=== PATIENT | male | born 1960 | race African-American/Black ===

== ENCOUNTER 2017-02-06 20:05 | Inpatient (IN) ==
[2017-02-06] MEDS ORDERED: ATIVAN IM ONE ×2 (20:40)
[2017-02-06 21:48] LABS: MANUAL DIFF NEEDED? NO
[2017-02-06 22:02] LABS: BASO% 0.3 % (0.0-0.8); EOS# 0.05 X1000 (0.0-0.7); EOS% 0.7 % (0.0-10.0); HEMATOCRIT 26.6 % (42.0-52.0); HEMOGLOBIN 8.7 g/dL (14.0-18.0); LYMPH# 1.47 X1000 (1.2-3.4); LYMPH% 20.2 % (20.5-51.1); MCH 33.7 PG (27-31); MCHC 32.7 g/dL (33-37); MCV 103.1 FL (81-99); MONO# 0.39 X1000 (0.11-0.59); MONO% 5.4 % (1.7-9.3); MPV 10.1 FL (7.4-10.4); NEUT% 73.4 % (42.2-75.2); PLT 141 X1000 (130-400); RBC 2.58 XMIL (4.7-6.1)
[2017-02-06 22:11] LABS: AGAP 21; ALBUMIN 3.7 g/dL (3.5-5.0); ALKALINE PHOSPHATASE 73 U/L (32-122); BUN 20 mg/dL (8-22); CALCIUM 9.7 mg/dL (8.8-10.2); CHLORIDE 95 mmol/L (98-107); COSMO 269; GOT 35 U/L (10-34); GPT 15 U/L (10-44); POTASSIUM 3.2 mmol/L (3.5-5.1); SODIUM 134 mmol/L (136-145); TCO2 18 mmol/L (25-35); TOTAL BILIRUBIN 1.14 mg/dL (0.20-1.00); TOTAL PROTEIN 7.2 g/dL (6.3-8.3)
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
[2017-02-06] MEDS ORDERED: PHENOBARBITAL ONE (22:59)
[2017-02-06] MEDS ORDERED: VALIUM ONE (23:00)
[2017-02-06] MEDS ORDERED: PHENOBARBITAL IM ONE (23:18)
[2017-02-06] MEDS ORDERED: VALIUM IM ONE (23:18)
[2017-02-07] MEDS ORDERED: THIAMINE IM ONE (00:32)
[2017-02-07] MEDS ORDERED: NS 1,000 ML IV ONE ×2 (00:32→01:15)
[2017-02-07] MEDS ORDERED: SODIUM CHLORIDE 0.9% INJ ONE (00:32)
[2017-02-07] MEDS ORDERED: M.V.I.-12 10 ML, FOLIC ACID 1 MG, MAGNESIUM SULFATE 1 GM, THIAMINE 100 MG in NS 1,000 ML IV ONE (00:32)
[2017-02-07] MEDS ORDERED: ZOFRAN IV PRN (00:32)
[2017-02-07] MEDS: VALIUM IV PRN ×6 (00:59→11:08)
[2017-02-07] MEDS: NEXIUM IV SCH (01:02)
[2017-02-07] MEDS: LOVENOX SUBQ SCH (01:02)
[2017-02-07] MEDS: NS + KCL 20 MEQ 1,000 ML IV SCH ×2 (01:08→07:52)
[2017-02-07 01:35] LABS: URINE MICRO REVIEW NEEDED? NO; URINE SOURCE CATH
[2017-02-07 01:54] LABS: BILIRUBIN URINE NEGATIVE (NEGATIVE); BLOOD URINE LARGE (NEGATIVE); COLOR YELLOW; GLUCOSE URINE NEGATIVE (NEGATIVE); LEUKOCYTES URINE NEGATIVE (NEGATIVE); NITRITE URINE NEGATIVE (NEGATIVE); PROTEIN URINE NEGATIVE (NEGATIVE); SP GRAVITY URINE 1.007; TURBIDITY URINE CLEAR (CLEAR); UROBILINOGEN URINE NORMAL (NORMAL)
[2017-02-07 01:55] LABS: UR EPITHELIAL CELLS <10 /HPF (<10); URINE BACTERIA NEGATIVE /HPF; URINE RBC <10 /HPF (<10); URINE WBC <10 /HPF (<10)
[2017-02-07] MEDS: PHENOBARBITAL IV PRN ×5 (02:10→11:08)
[2017-02-07 06:01] LABS: MANUAL DIFF NEEDED? NO
[2017-02-07 06:10] LABS: BASO% 0.2 % (0.0-0.8); EOS# 0.09 X1000 (0.0-0.7); EOS% 1.4 % (0.0-10.0); HEMATOCRIT 25.9 % (42.0-52.0); HEMOGLOBIN 8.4 g/dL (14.0-18.0); LYMPH# 1.33 X1000 (1.2-3.4); MCH 33.7 PG (27-31); MCHC 32.4 g/dL (33-37); MONO# 0.37 X1000 (0.11-0.59); MONO% 5.6 % (1.7-9.3); MPV 10.2 FL (7.4-10.4); NEUT% 72.8 % (42.2-75.2); PLT 123 X1000 (130-400); RBC 2.49 XMIL (4.7-6.1)
[2017-02-07 06:18] LABS: AGAP 18; ALBUMIN 3.1 g/dL (3.5-5.0); ALKALINE PHOSPHATASE 64 U/L (32-122); BUN 14 mg/dL (8-22); CALCIUM 8.4 mg/dL (8.8-10.2); CHLORIDE 103 mmol/L (98-107); COSMO 280; GOT 30 U/L (10-34); GPT 13 U/L (10-44); POTASSIUM 3.3 mmol/L (3.5-5.1); SODIUM 141 mmol/L (136-145); TCO2 20 mmol/L (25-35); TOTAL BILIRUBIN 0.89 mg/dL (0.20-1.00); TOTAL PROTEIN 6.2 g/dL (6.3-8.3)
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
[2017-02-07] MEDS ORDERED: POTASSIUM CHLORIDE 60 MEQ in NS 500 ML IV ONE (08:30)
[2017-02-07] MEDS: 1/2 NS 1,000 ML IV SCH ×2 (08:51→18:05)
[2017-02-07 10:12] LABS: UR AMPHETAMINES QUAL NONE DETECTED (NONE DETECT); UR BARBITUATES QUAL NONE DETECTED (NONE DETECT); UR BENZODIAZEPIN QUAL PRESUMPTIVE POSITIVE (NONE DETECT); UR CANNABINOIDS QUAL NONE DETECTED (NONE DETECT); UR COCAINE QUAL NONE DETECTED (NONE DETECT); UR METHADONE QUAL NONE DETECTED (NONE DETECT); UR OPIATES QUAL NONE DETECTED (NONE DETECT); UR OXYCODONE QUAL NONE DETECTED (NONE DETECT); UR PCP QUAL NONE DETECTED (NONE DETECT)
[2017-02-07 11:25] LABS: VITAMIN D 25 HYDROXY 11.6 NG/DL
--- NOTE | 2017-02-07 20:20 | PROGRESS NOTE ---
DATE: 02/07/2017 SUBJECTIVE: The patient is currently sedated and lethargic. Sometimes he does awaken and try to sit up. OBJECTIVE: Vital Signs: Temperature 97.6 degrees, blood pressure 148/92, heart rate 94, respirations 25, O2 saturations 95% on room air. General: This is an elderly male lying in bed in no acute distress. Head: Normocephalic, atraumatic. Heart: S1, S2. Normal. Tachycardic. Lungs: Equal air entry bilaterally, no crackles, no rales. Abdomen: Positive bowel sounds. Soft, nontender, nondistended. Extremities: No edema. No cyanosis. No calf tenderness. Neurologic: The patient is currently lethargic. He does move all 4 extremities. LABORATORY: White blood cell count 6.6, hemoglobin 8.4, hematocrit 25, platelets 123,000. Sodium 141, potassium 3.3, chloride 103, CO2 20, BUN 14, creatinine 0.7, glucose 62, calcium 8.4. ASSESSMENT AND PLAN: 1. Toxic encephalopathy versus alcohol withdrawal. We will continue to monitor the patient closely and continue with IV fluid hydration. We will also replenish the patient's electrolytes. The patient's mental status will be monitored closely. 2. Alcoholism. Aware. 3. History of peptic ulcer disease. Continue on IV Nexium. 4. Hypokalemia. We will replace the patient's potassium. 5. Anemia. The patient's hemoglobin and hematocrit are low, but stable. We will continue to monitor this closely. 6. Deep vein thrombosis prophylaxis. We will continue with Sequential Compression Devices. cc: Mikayla Regan MD
[2017-02-08] MEDS ORDERED: SODIUM CHLORIDE 0.9% 10 ML ONE (00:16)
[2017-02-08] MEDS: LOVENOX SUBQ SCH (00:18)
[2017-02-08] MEDS: NEXIUM IV SCH (00:18)
[2017-02-08] MEDS: 1/2 NS 1,000 ML IV SCH ×3 (04:14→14:17)
[2017-02-08 06:12] LABS: MANUAL DIFF NEEDED? NO
[2017-02-08 06:21] LABS: BASO% 0.1 % (0.0-0.8); EOS# 0.05 X1000 (0.0-0.7); EOS% 0.6 % (0.0-10.0); HEMATOCRIT 29.5 % (42.0-52.0); HEMOGLOBIN 9.6 g/dL (14.0-18.0); LYMPH# 1.05 X1000 (1.2-3.4); LYMPH% 12.7 % (20.5-51.1); MCH 33.9 PG (27-31); MCHC 32.5 g/dL (33-37); MCV 104.2 FL (81-99); MONO# 0.42 X1000 (0.11-0.59); MONO% 5.1 % (1.7-9.3); MPV 10.1 FL (7.4-10.4); NEUT% 81.5 % (42.2-75.2); PLT 129 X1000 (130-400); RBC 2.83 XMIL (4.7-6.1)
[2017-02-08 06:44] LABS: PROTIME 10.5 Seconds (9.2-11.7)
[2017-02-08 06:46] LABS: AGAP 21; ALBUMIN 3.3 g/dL (3.5-5.0); ALKALINE PHOSPHATASE 69 U/L (32-122); BUN 4 mg/dL (8-22); CALCIUM 8.9 mg/dL (8.8-10.2); CHLORIDE 99 mmol/L (98-107); COSMO 267; GOT 25 U/L (10-34); GPT 13 U/L (10-44); POTASSIUM 3.8 mmol/L (3.5-5.1); SODIUM 136 mmol/L (136-145); TCO2 16 mmol/L (25-35); TOTAL PROTEIN 6.7 g/dL (6.3-8.3)
[2017-02-08] MEDS: VALIUM IV PRN (07:58)
[2017-02-08] MEDS: TYLENOL PO PRN (12:35)
--- NOTE | 2017-02-08 12:51 | PROGRESS NOTE ---
DATE: 02/08/2017 SUBJECTIVE: The patient is resting comfortably in bed. He is more awake today. He does complain of rib pain. OBJECTIVE: Vital Signs: Temperature 98.2 degrees, blood pressure 118/75, heart rate 85, respirations 19, O2 saturation is 98% on room air. General: This is an elderly male, lying in bed, in no acute distress. Head: Normocephalic, atraumatic. Heart: S1, S2. Normal. Regular rate and rhythm. Lungs: Clear to auscultation bilaterally. No crackles. No rales. Abdomen: Positive bowel sounds. Soft, nontender, nondistended. Extremities: No edema. No cyanosis. No calf tenderness. Neurologic: The patient is awake and able to answer questions. LABS: White blood cell count 8.2, hemoglobin 9.6, hematocrit 29, platelets 129,000. Sodium 136, potassium 3.8, chloride 99, CO2 16, BUN 4, creatinine 0.7. ASSESSMENT AND PLAN: 1. Toxic encephalopathy. Improving slowly. 2. Alcoholism. Aware. 3. History of peptic ulcer disease. Continue on Nexium. 4. Anemia. The patient's hemoglobin and hematocrit are stable. 5. Deep vein thrombosis prophylaxis. Continue with SCDs. cc: Mikayla Regan MD
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
[2017-02-08] MEDS: NORCO-7.5 PO PRN (15:20)
[2017-02-08] MEDS: ZOSYN 3.375 GM/NS 3.375 GM/50 ML IVPB IV SCH ×2 (15:58→20:21)
[2017-02-09] MEDS: LOVENOX SUBQ SCH (00:26)
[2017-02-09] MEDS: 1/2 NS 1,000 ML IV SCH (00:26)
[2017-02-09] MEDS: NEXIUM IV SCH (00:26)
[2017-02-09] MEDS: TYLENOL PO PRN (00:34)
[2017-02-09] MEDS: ZOSYN 3.375 GM/NS 3.375 GM/50 ML IVPB IV SCH ×4 (02:30→20:30)
[2017-02-09 04:38] LABS: MANUAL DIFF NEEDED? NO
[2017-02-09 05:17] LABS: BASO% 0.2 % (0.0-0.8); EOS# 0.08 X1000 (0.0-0.7); EOS% 1.4 % (0.0-10.0); HEMOGLOBIN 10.1 g/dL (14.0-18.0); LYMPH# 1.31 X1000 (1.2-3.4); LYMPH% 22.7 % (20.5-51.1); MCH 33.9 PG (27-31); MCHC 33.7 g/dL (33-37); MCV 100.7 FL (81-99); MONO# 0.47 X1000 (0.11-0.59); MONO% 8.1 % (1.7-9.3); MPV 9.4 FL (7.4-10.4); NEUT% 67.6 % (42.2-75.2); PLT 188 X1000 (130-400); RBC 2.98 XMIL (4.7-6.1)
[2017-02-09 06:52] LABS: AGAP 14; BUN 3 mg/dL (8-22); CALCIUM 8.5 mg/dL (8.8-10.2); CHLORIDE 99 mmol/L (98-107); COSMO 267; POTASSIUM 3.1 mmol/L (3.5-5.1); SODIUM 135 mmol/L (136-145); TCO2 22 mmol/L (25-35)
[2017-02-09] MEDS ORDERED: KLOR-CON PO ONE (07:09)
[2017-02-09] MEDS ORDERED: VITAMIN D PO SCH (07:15)
[2017-02-09 07:26] LABS: MAGNESIUM 1.6 mg/dL (1.5-2.7)
[2017-02-09] MEDS: MIRALAX PO SCH ×2 (08:21→20:00)
[2017-02-09] MEDS ORDERED: MAGNESIUM SULFATE 2 GM/S.W.I. 2 GM/50 ML IVPB IV ONE (16:52)
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
[2017-02-10] MEDS: LOVENOX SUBQ SCH ×2 (00:45→23:55)
[2017-02-10] MEDS: ZOSYN 3.375 GM/NS 3.375 GM/50 ML IVPB IV SCH ×4 (03:09→20:28)
[2017-02-10 06:09] LABS: AGAP 13; BUN 7 mg/dL (8-22); CALCIUM 8.7 mg/dL (8.8-10.2); CHLORIDE 101 mmol/L (98-107); COSMO 280; MAGNESIUM 1.8 mg/dL (1.5-2.7); POTASSIUM 3.6 mmol/L (3.5-5.1); SODIUM 140 mmol/L (136-145); TCO2 26 mmol/L (25-35)
[2017-02-10] MEDS: PRILOSEC PO SCH (06:18)
[2017-02-10 06:20] LABS: HEMATOCRIT 27.7 % (42.0-52.0); HEMOGLOBIN 9.1 g/dL (14.0-18.0); MCH 33.7 PG (27-31); MCHC 32.9 g/dL (33-37); MCV 102.6 FL (81-99); MPV 9.9 FL (7.4-10.4); RBC 2.7 XMIL (4.7-6.1)
[2017-02-10] MEDS: MIRALAX PO SCH ×2 (08:38→20:28)
--- NOTE | 2017-02-10 17:08 | PROGRESS NOTE ---
DATE: 02/10/2017 SUBJECTIVE: The patient has been making statements of feeling suicidal and homicidal to the nursing staff this morning. When further questioned about it he denies that he ever made the statements. Medically speaking the patient is stable. OBJECTIVE: Vital Signs: Temperature 98.3 degrees, blood pressure 108/74, heart rate 90, respirations 20, O2 saturations 99% on room air. General: This is an elderly male, lying in bed, in no acute distress. Head: Normocephalic, atraumatic. Heart: S1, S2. Normal. Regular rate and rhythm. Lungs: Clear to auscultation bilaterally. No wheezing. No rales. No rhonchi. Abdomen: Positive bowel sounds. Soft, nontender, nondistended. Extremities: No edema. No cyanosis. No calf tenderness. Neurologic: The patient is alert and oriented x3. No focal neurologic deficits noted. LABS: White blood cell count 4.4, hemoglobin 9.1, hematocrit 27, platelets 215,000. Sodium 140, potassium 3.6, chloride 101, CO2 26, BUN 7, creatinine 0.7, glucose 140, magnesium 1.8, phosphorus 2.8. ASSESSMENT AND PLAN: 1. Toxic encephalopathy with alcohol withdrawal. Resolved. 2. Suicidal ideation. Dance Entertainer and case management are working on an inpatient psych placement for the patient. The patient was denied acceptance to [facility] on Sunday. 3. Alcoholism. Aware. The patient has been counseled about alcohol cessation. 4. Bilateral rib fractures. Aware. 5. Vitamin D deficiency. Continue on vitamin D replacement. 6. Deep vein thrombosis prophylaxis. Continue on Lovenox. cc: Mikayla Regan MD
[2017-02-10] MEDS: NORCO-7.5 PO PRN (20:49)
[2017-02-11] MEDS: ZOSYN 3.375 GM/NS 3.375 GM/50 ML IVPB IV SCH ×4 (03:44→20:18)
[2017-02-11] MEDS: NORCO-7.5 PO PRN ×4 (04:23→21:57)
[2017-02-11 06:03] LABS: AGAP 7; BUN 9 mg/dL (8-22); CALCIUM 9.2 mg/dL (8.8-10.2); CHLORIDE 104 mmol/L (98-107); COSMO 279; POTASSIUM 3.7 mmol/L (3.5-5.1); SODIUM 140 mmol/L (136-145); TCO2 29 mmol/L (25-35)
[2017-02-11] MEDS: PRILOSEC PO SCH (06:08)
[2017-02-11] MEDS: MIRALAX PO SCH ×2 (08:43→20:18)
--- NOTE | 2017-02-11 19:08 | PROGRESS NOTE ---
DATE: 02/11/2017 SUBJECTIVE: The patient is resting comfortably in bed. He has no complaints. OBJECTIVE: Vital Signs: Temperature 98 degrees, blood pressure 113/71, heart rate 81, respirations 18, O2 saturation is 96% on room air. General: This is an elderly male, lying in bed, in no acute distress. Head: Normocephalic, atraumatic. Heart: S1, S2. Normal. Regular rate and rhythm. Lungs: Equal air entry bilaterally. No crackles. No rales. Abdomen: Positive bowel sounds. Soft, nontender, nondistended. Extremities: No edema. No cyanosis. No calf tenderness. Neurologic: The patient is alert and oriented x3. LABS: Reviewed. ASSESSMENT AND PLAN: 1. Toxic encephalopathy. Resolved. 2. Alcoholism. The patient has been counseled about alcohol cessation. 3. Suicidal ideation. The patient states that he does want psychiatric help for his suicidal thoughts and depression. transaction advisory services manager is working on inpatient psychiatric placement for the patient. 4. Bilateral rib fractures. Aware. 5. Vitamin D deficiency. Continue on vitamin D replacement. 6. Deep vein thrombosis prophylaxis. Continue on Lovenox. cc: Mikayla eRgan MD
[2017-02-11] MEDS: TYLENOL PO PRN (19:46)
[2017-02-11] MEDS: LOVENOX SUBQ SCH (23:58)
[2017-02-12] MEDS: ZOSYN 3.375 GM/NS 3.375 GM/50 ML IVPB IV SCH ×2 (03:54→08:37)
[2017-02-12] MEDS: NORCO-7.5 PO PRN ×2 (03:55→20:03)
[2017-02-12 06:20] LABS: AGAP 10; BUN 9 mg/dL (8-22); CALCIUM 8.8 mg/dL (8.8-10.2); CHLORIDE 101 mmol/L (98-107); COSMO 274; POTASSIUM 4.4 mmol/L (3.5-5.1); SODIUM 137 mmol/L (136-145); TCO2 26 mmol/L (25-35)
[2017-02-12] MEDS: PRILOSEC PO SCH (06:36)
[2017-02-12] MEDS: MIRALAX PO SCH ×2 (08:37→20:03)
[2017-02-12 09:25] LABS: HEMOGLOBIN A1C 4.6 % (4.8-6.0)
--- NOTE | 2017-02-12 09:43 | Diag Imaging Result Doc PS360 ---
EXAM: HIP W/PELVIS BILAT 2 VIEWS HISTORY: recent fall hip pain TECHNIQUE: AP pelvis and bilateral frog-leg lateral hips, three views COMMENT: The right hip joint is narrowed to a greater degree than the left. There is no evidence of fracture or dislocation. There is some solid stool throughout the visualized left colon. There are phleboliths in the pelvis. IMPRESSION: Mild osteoarthritic changes in the right hip. No evidence of acute bony disease. Electronically signed by Cyrus Young 02/12/2017 9:40 AM
[2017-02-12] MEDS: NEURONTIN PO SCH ×2 (10:31→20:03)
--- NOTE | 2017-02-12 18:58 | PROGRESS NOTE ---
DATE: 02/12/2017 SUBJECTIVE: The patient admits that he is very depressed and wants help for his depression. He does OBJECTIVE: Vital Signs: Temperature 97 degrees, blood pressure 108/76, heart rate 107, respirations 18, O2 saturations 100% on room air. General: This is an elderly male lying in bed, in no acute distress. Head: Normocephalic, atraumatic. Heart: S1, S2. Normal. Regular rate and rhythm. Lungs: Clear to auscultation bilaterally. Abdomen: Positive bowel sounds. Soft, nontender, nondistended. Extremities: No edema. No cyanosis. No calf tenderness. Neurologic: The patient is alert and oriented x3. LABORATORY: Sodium 137, potassium 4.4, chloride 101, CO2 26, BUN 9, creatinine 0.8, glucose 118. ASSESSMENT AND PLAN: 1. Toxic encephalopathy. Resolved. 2. Alcoholism. Aware. 3. Depression with suicidal ideation. environmental field services technician is working on inpatient psychiatric placement for the patient. 4. Vitamin D deficiency. Continue with vitamin D replacement. 5. Gastrointestinal prophylaxis. Continue on Prilosec. 6. Deep vein thrombosis prophylaxis. Continue on Lovenox. 7. Continue with physical therapy. cc: Mikayla Regan MD
[2017-02-12] MEDS: LOVENOX SUBQ SCH (23:38)
[2017-02-13] MEDS: NORCO-7.5 PO PRN (06:02)
[2017-02-13] MEDS: PRILOSEC PO SCH (06:04)
[2017-02-13] MEDS: MIRALAX PO SCH ×2 (08:24→20:35)
[2017-02-13] MEDS: NEURONTIN PO SCH ×2 (08:24→20:35)
--- NOTE | 2017-02-13 19:16 | PROGRESS NOTE ---
DATE: 02/13/2017 SUBJECTIVE: The patient is resting comfortably in bed. No acute events noted overnight. OBJECTIVE: Vital Signs: Temperature 99 degrees, blood pressure 107/74, heart rate 100, respirations 20, O2 saturations 96% on room air. General: This is a elderly male, lying in bed, in no acute distress. Head: Normocephalic, atraumatic. Heart: S1, S2. Normal. Regular rate and rhythm. Lungs: Clear to auscultation bilaterally. No wheezing. No rales. No rhonchi. Abdomen: Positive bowel sounds. Soft, nontender, nondistended. Extremities: No edema. No cyanosis. No calf tenderness. Neurologic: The patient is alert and oriented x3. LABS: Reviewed. ASSESSMENT AND PLAN: 1. Suicidal ideation with depression. Case management and Director Group Sales are working on inpatient rehab placement for the patient. 2. Toxic encephalopathy. Resolved. 3. Alcoholism. Aware. 4. Vitamin D deficiency. Continue with vitamin D replacement. 5. GI prophylaxis. Continue on Prilosec. 6. Deep vein thrombosis prophylaxis. Continue on Lovenox. cc: Mikayla Regan MD
[2017-02-13] MEDS: LOVENOX SUBQ SCH (23:34)
[2017-02-14] MEDS: NORCO-7.5 PO PRN (00:16)
[2017-02-14 05:10] LABS: HEMATOCRIT 31.4 % (42.0-52.0); HEMOGLOBIN 9.9 g/dL (14.0-18.0); MCH 33.4 PG (27-31); MCHC 31.5 g/dL (33-37); MCV 106.1 FL (81-99); MPV 9.4 FL (7.4-10.4); RBC 2.96 XMIL (4.7-6.1)
[2017-02-14 05:29] LABS: AGAP 12; BUN 16 mg/dL (8-22); CALCIUM 9.1 mg/dL (8.8-10.2); CHLORIDE 100 mmol/L (98-107); COSMO 279; POTASSIUM 4.3 mmol/L (3.5-5.1); SODIUM 138 mmol/L (136-145); TCO2 26 mmol/L (25-35)
[2017-02-14] MEDS: PRILOSEC PO SCH (06:43)
[2017-02-14] MEDS: NEURONTIN PO SCH (08:14)
[2017-02-14] MEDS: MIRALAX PO SCH (08:14)
[2017-02-14 08:25] VITALS: BP 116/78
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
== END 2017-02-14 09:19 | disposition home or self-care (01) ==
LOC: ED 20:05 → ICU 23:46 → SUATTDRO 23:46
PROVIDERS: ATTEND Internal Medicine

== ENCOUNTER 2017-03-01 11:42 | Inpatient (IN) ==
[2017-03-01] MEDS ORDERED: M.V.I.-12 10 ML, FOLIC ACID 1 MG, MAGNESIUM SULFATE 1 GM, THIAMINE 100 MG in NS 1,000 ML IV ONE ×2 (12:14→12:27)
[2017-03-01 12:52] LABS: BASO% 0.4 % (0.0-0.8); EOS# 0.28 X1000 (0.0-0.7); EOS% 4.1 % (0.0-10.0); HEMATOCRIT 39.5 % (42.0-52.0); HEMOGLOBIN 12.5 g/dL (14.0-18.0); LYMPH% 33.9 % (20.5-51.1); MANUAL DIFF NEEDED? NO; MCH 33.8 PG (27-31); MCHC 31.6 g/dL (33-37); MCV 106.8 FL (81-99); MONO# 0.37 X1000 (0.11-0.59); MONO% 5.5 % (1.7-9.3); MPV 9.4 FL (7.4-10.4); NEUT% 56.1 % (42.2-75.2); PLT 288 X1000 (130-400)
[2017-03-01 12:57] LABS: INR 0.98; PROTIME 10.3 Seconds (9.2-11.7)
[2017-03-01 12:58] LABS: UR AMPHETAMINES QUAL NONE DETECTED (NONE DETECT); UR BARBITUATES QUAL NONE DETECTED (NONE DETECT); UR BENZODIAZEPIN QUAL NONE DETECTED (NONE DETECT); UR CANNABINOIDS QUAL NONE DETECTED (NONE DETECT); UR COCAINE QUAL NONE DETECTED (NONE DETECT); UR METHADONE QUAL NONE DETECTED (NONE DETECT); UR OPIATES QUAL NONE DETECTED (NONE DETECT); UR OXYCODONE QUAL NONE DETECTED (NONE DETECT); UR PCP QUAL NONE DETECTED (NONE DETECT)
[2017-03-01 13:04] LABS: AGAP 15; ALBUMIN 4.1 g/dL (3.5-5.0); ALKALINE PHOSPHATASE 71 U/L (32-122); BUN 12 mg/dL (8-22); CALCIUM 9.2 mg/dL (8.8-10.2); CHLORIDE 109 mmol/L (98-107); COSMO 297; GOT 17 U/L (10-34); GPT 8 U/L (10-44); POTASSIUM 3.9 mmol/L (3.5-5.1); SODIUM 150 mmol/L (136-145); TCO2 26 mmol/L (25-35); TOTAL BILIRUBIN 0.19 mg/dL (0.20-1.00); TOTAL PROTEIN 7.7 g/dL (6.3-8.3)
[2017-03-01] MEDS ORDERED: NS 1,000 ML IV ONE (13:40)
[2017-03-01] MEDS ORDERED: ATIVAN IV ONE (15:12)
--- NOTE | 2017-03-01 16:33 | Diag Imaging Result Doc PS360 ---
EXAM: HEAD W/O CONTRAST TECHNIQUE: INDICATION: INTOXICATED COMPARISON: 01/02/2017 FINDINGS: There is no definite acute infarct given the limited sensitivity of CT versus MRI. There is no discrete intracranial mass, mass effect, or intracranial hemorrhage. The surrounding soft tissues and bony structures are essentially unremarkable. IMPRESSION: No evidence of acute intracranial pathology. Electronically signed by Yinka Holland 03/01/2017 4:30 PM
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
[2017-03-01] MEDS ORDERED: ATIVAN IV PRN (16:59)
[2017-03-01] MEDS ORDERED: PHENOBARBITAL IV PRN (17:00)
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
[2017-03-01] MEDS ORDERED: BENADRYL ONE (17:45)
[2017-03-01] MEDS ORDERED: ATIVAN ONE (17:45)
[2017-03-01] MEDS ORDERED: HALDOL ONE (17:45)
[2017-03-01] MEDS ORDERED: HALDOL IM PRN (17:53)
[2017-03-01] MEDS ORDERED: ATIVAN IM ONE (17:53)
[2017-03-01] MEDS ORDERED: BENADRYL IM ONE (17:53)
[2017-03-01] MEDS ORDERED: ZOFRAN IV PRN (18:33)
[2017-03-01] MEDS ORDERED: NS 1,000 ML IV PRN (18:33)
[2017-03-01 20:52] LABS: URINE CULTURE PL NEEDED? NO
[2017-03-01 20:58] LABS: BILIRUBIN URINE NEGATIVE (NEGATIVE); BLOOD URINE TRACE (NEGATIVE); CLARITY CLEAR (CLEAR); COLOR YELLOW; GLUCOSE URINE NEGATIVE (NEGATIVE); LEUKOCYTES URINE NEGATIVE (NEGATIVE); NITRITE URINE NEGATIVE (NEGATIVE); PROTEIN URINE NEGATIVE (NEGATIVE); UROBILINOGEN URINE NORMAL
[2017-03-01 21:21] LABS: URINE CAST NONE SEEN /LPF; URINE CRYSTAL NONE SEEN /HPF; URINE EPITHELIAL CELLS <10 /HPF (<10); URINE RBC <10 /HPF (<10); URINE SOURCE CATH
[2017-03-02 05:52] LABS: MANUAL DIFF NEEDED? NO
[2017-03-02 06:06] LABS: BASO% 0.3 % (0.0-0.8); EOS# 0.21 X1000 (0.0-0.7); EOS% 3.5 % (0.0-10.0); HEMATOCRIT 30.6 % (42.0-52.0); HEMOGLOBIN 9.5 g/dL (14.0-18.0); IMM GRAN# 0.01 X1000 (0.0-0.04); IMM GRAN% 0.2 % (0.0-0.5); LYMPH# 1.21 X1000 (1.2-3.4); LYMPH% 20.1 % (20.5-51.1); MCH 32.5 PG (27-31); MCV 104.8 FL (81-99); MONO# 0.32 X1000 (0.11-0.59); MONO% 5.3 % (1.7-9.3); MPV 9.2 FL (7.4-10.4); NEUT% 70.6 % (42.2-75.2); PLT 250 X1000 (130-400); RBC 2.92 XMIL (4.7-6.1)
[2017-03-02 06:26] LABS: AGAP 10; ALBUMIN 3.3 g/dL (3.5-5.0); ALKALINE PHOSPHATASE 59 U/L (32-122); BUN 12 mg/dL (8-22); CALCIUM 8.2 mg/dL (8.8-10.2); CHLORIDE 107 mmol/L (98-107); COSMO 281; GOT 21 U/L (10-34); GPT 6 U/L (10-44); MAGNESIUM 1.9 mg/dL (1.5-2.7); POTASSIUM 3.9 mmol/L (3.5-5.1); SODIUM 141 mmol/L (136-145); TCO2 24 mmol/L (25-35); TOTAL BILIRUBIN < 0.15 mg/dL (0.20-1.00); TOTAL PROTEIN 5.7 g/dL (6.3-8.3)
[2017-03-02 06:31] LABS: FREE T4 0.79 ng/dL (0.93-1.70)
[2017-03-02] MEDS ORDERED: PRILOSEC PO SCH (07:00)
[2017-03-02] MEDS ORDERED: M.V.I.-12 10 ML, FOLIC ACID 1 MG, MAGNESIUM SULFATE 1 GM, THIAMINE 100 MG in NS 1,000 ML IV SCH (09:00)
[2017-03-02 11:10] VITALS: BP 135/82
--- NOTE | 2017-03-02 22:04 | DISCHARGE SUMMARY ---
ADMISSION DATE: 03/01/2017 DISCHARGE DATE: 03/02/2017 DISCHARGE DIAGNOSES: 1. Acute alcohol intoxication resolved. 2. Low back pain. CONSULTATIONS: None. PROCEDURES: None. BRIEF HOSPITAL COURSE: The patient is a 56-year-old male who was admitted as noted on the HPI with a known history of chronic peptic ulcer disease and chronic alcohol abuse. He was found intoxicated, poorly responsive. He was brought to the hospital and was admitted with an alcohol level of 400. On discharge his alcohol level was down to 32. He denied any complaints. He was awake, alert, oriented. He was able to eat without any difficulty. He stated that he was leaving the hospital regardless. DISPOSITION: The patient will be discharged home. No prescriptions were written. I did discuss with patient the perils of alcohol and alcohol abuse. Patient states that he enjoys drinking and was going to go home and continue to drink. DISCHARGE TIME: 35 minutes. cc: Casa Bishop MD
== END 2017-03-02 08:20 | disposition home or self-care (01) ==
LOC: ED 11:42 → P.ICU 17:28
PROVIDERS: ATTEND Family Medicine

== ENCOUNTER 2018-08-18 01:32 | Inpatient (IN) ==
[2018-08-18] MEDS ORDERED: M.V.I.-12 10 ML, FOLIC ACID 1 MG, MAGNESIUM SULFATE 1 GM, THIAMINE 100 MG in NS 1,000 ML IV ONE (01:52)
[2018-08-18] MEDS ORDERED: ATIVAN IV ONE ×2 (01:56→03:40)
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
[2018-08-18 02:46] LABS: BASO# 0.01 X1000 (0.0-0.2); BASO% 0.1 % (0.0-0.8); HEMOGLOBIN 11.3 g/dL (14.0-18.0); LYMPH% 12.8 % (20.5-51.1); MCH 32.9 PG (27-31); MCHC 33.2 g/dL (33-37); MCV 99.1 FL (81-99); MONO# 0.75 X1000 (0.11-0.59); MONO% 10.7 % (1.7-9.3); MPV 10.2 FL (7.4-10.4); NEUT# 5.36 X1000 (1.4-6.5); NEUT% 76.4 % (42.2-75.2); PLT 162 X1000 (130-400); RBC 3.43 XMIL (4.7-6.1); RDW 14.9 % (11.5-14.5); WBC 7.02 X1000 (4.8-10.8)
[2018-08-18 03:04] LABS: AGAP 15; ALB/GLOB RATIO 1.3; ALBUMIN 4.2 g/dL (3.5-5.0); ALKALINE PHOSPHATASE 56 U/L (32-122); BUN 12 mg/dL (8-22); CALCIUM 9.5 mg/dL (8.8-10.2); CHLORIDE 100 mmol/L (98-107); COSMO 278; CREATININE 0.8 mg/dL (0.7-1.2); ESTIMATED GFR > 60; GLUCOSE 110 mg/dL (70-104); GOT 85 U/L (10-34); GPT 24 U/L (10-44); POTASSIUM 3.3 mmol/L (3.5-5.1); SODIUM 139 mmol/L (136-145); TCO2 24 mmol/L (25-35); TOTAL BILIRUBIN 0.71 mg/dL (0.20-1.00); TOTAL PROTEIN 7.4 g/dL (6.3-8.3)
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
[2018-08-18] MEDS ORDERED: ATIVAN IV PRN ×2 (07:21→09:04)
[2018-08-18] MEDS ORDERED: ZOFRAN IV PRN (07:21)
[2018-08-18] MEDS: NS 1,000 ML IV SCH ×3 (07:36→23:27)
[2018-08-18] MEDS ORDERED: POTASSIUM CHLORIDE 20 MEQ/SWI 20 MEQ/100 ML IVPB IV ONE (07:55)
[2018-08-18] MEDS: LOVENOX SUBQ SCH (08:25)
[2018-08-18] MEDS ORDERED: NS 1,000 ML IV ONE (09:05)
[2018-08-18] MEDS: ATIVAN 20 MG in NS 190 ML IV SCH ×2 (09:20→19:09)
[2018-08-18 09:26] LABS: URINE SOURCE CATH
[2018-08-18 09:48] LABS: BILIRUBIN URINE NEGATIVE (NEGATIVE); BLOOD URINE SMALL (NEGATIVE); COLOR YELLOW; GLUCOSE URINE NEGATIVE (NEGATIVE); KETONE URINE NEGATIVE (NEGATIVE); LEUKOCYTES URINE NEGATIVE (NEGATIVE); NITRITE URINE NEGATIVE (NEGATIVE); PH URINE 6.5; PROTEIN URINE NEGATIVE (NEGATIVE); TURBIDITY URINE CLEAR (CLEAR); UROBILINOGEN URINE NORMAL (NORMAL)
[2018-08-18 09:50] LABS: UR EPITHELIAL CELLS <10 /HPF (<10); URINE BACTERIA NEGATIVE /HPF; URINE RBC <10 /HPF (<10); URINE WBC <10 /HPF (<10)
[2018-08-18 10:28] LABS: UR AMPHETAMINES QUAL NONE DETECTED (NONE DETECT); UR BARBITUATES QUAL NONE DETECTED (NONE DETECT); UR BENZODIAZEPIN QUAL NONE DETECTED (NONE DETECT); UR CANNABINOIDS QUAL NONE DETECTED (NONE DETECT); UR COCAINE QUAL NONE DETECTED (NONE DETECT); UR METHADONE QUAL NONE DETECTED (NONE DETECT); UR OPIATES QUAL NONE DETECTED (NONE DETECT); UR OXYCODONE QUAL NONE DETECTED (NONE DETECT); UR PCP QUAL NONE DETECTED (NONE DETECT)
[2018-08-18] MEDS: STERILE WATER INJ. INJ PRN (15:12)
[2018-08-18] MEDS: GEODON IM PRN ×2 (15:12→21:30)
[2018-08-18] MEDS ORDERED: PHENOBARBITAL IV ONE (23:40)
[2018-08-19] MEDS: NS 1,000 ML IV SCH ×4 (03:35→21:59)
[2018-08-19 05:15] LABS: BASO# 0.02 X1000 (0.0-0.2); BASO% 0.4 % (0.0-0.8); EOS# 0.02 X1000 (0.0-0.7); EOS% 0.4 % (0.0-10.0); HEMATOCRIT 39.3 % (42.0-52.0); HEMOGLOBIN 13.1 g/dL (14.0-18.0); LYMPH# 1.21 X1000 (1.2-3.4); LYMPH% 24.5 % (20.5-51.1); MCH 33.4 PG (27-31); MCHC 33.3 g/dL (33-37); MCV 100.3 FL (81-99); MONO# 0.46 X1000 (0.11-0.59); MONO% 9.3 % (1.7-9.3); MPV 11.2 FL (7.4-10.4); NEUT# 3.22 X1000 (1.4-6.5); NEUT% 65.4 % (42.2-75.2); PLT 121 X1000 (130-400); RBC 3.92 XMIL (4.7-6.1); RDW 14.9 % (11.5-14.5); WBC 4.93 X1000 (4.8-10.8)
[2018-08-19 05:39] LABS: AGAP 16; BUN 5 mg/dL (8-22); CALCIUM 9.2 mg/dL (8.8-10.2); CHLORIDE 104 mmol/L (98-107); COSMO 281; CREATININE 0.7 mg/dL (0.7-1.2); ESTIMATED GFR > 60; GLUCOSE 69 mg/dL (70-104); POTASSIUM 3.6 mmol/L (3.5-5.1); SODIUM 143 mmol/L (136-145); TCO2 23 mmol/L (25-35)
[2018-08-19] MEDS ORDERED: NS 1,000 ML IV ONE (08:16)
[2018-08-19] MEDS: LOVENOX SUBQ SCH (08:28)
[2018-08-19] MEDS: STERILE WATER INJ. INJ PRN (08:28)
[2018-08-19] MEDS: GEODON IM PRN (08:28)
[2018-08-19] MEDS: THIAMINE 100 MG in NS 50 ML IV SCH (09:29)
--- NOTE | 2018-08-19 10:12 | PROGRESS NOTE ---
DATE: 08/19/2018 SUBJECTIVE: The patient continues to be very agitated. Overnight, he was started on an Ativan drip and he required Geodon and phenobarbital. OBJECTIVE: Vital Signs: Temperature 97.5 degrees, heart rate 60, respiratory rate 22, blood pressure 151/109, O2 saturation 100% on room air. General Examination: This is a chronically ill- looking, 57-year-old, male, lying in bed, in no acute distress. Cardiovascular Examination: S1 and S2 heard. Tachycardic. No murmurs, gallops, or rubs. Regular rate and rhythm. Respiratory Examination: Clear bilaterally to auscultation. No work of breathing or using accessory muscles. Abdomen: Soft. Nontender to palpation. Bowel sounds present. No organomegaly. Extremities: No clubbing, cyanosis, or edema. Peripheral pulses present in both legs. Neurological Examination: The patient is sleepier, obtunded. He received recently Geodon. Laboratory Data: White cell count 4.93, hemoglobin 13.1, hematocrit 39.3, platelets 121,000. BMP is unremarkable. ASSESSMENT AND PLAN: 1. Toxic encephalopathy secondary to alcohol withdrawal. 2. The patient continues to be very agitated. The patient has a history of alcohol abuse in the past and also polysubstance abuse as well. He has been seen in [facility] for that. This time, the patient was brought to the emergency room by police because the patient was having apparently visual hallucinations. He has been started on an Ativan drip and was still combative and agitated. He was given Geodon but he was still agitated so he was started on phenobarbital pushes and he is more calmed down now. I have not seen any neuroimaging done for this patient and even though he was admitted for alcohol withdrawal, I would like to see a CAT scan of the head with and without contrast to rule out any structural abnormality in the brain. We will provide intravenous fluids. We will continue with intravenous thiamine. We will continue to monitor this patient closely in the intensive care unit. cc: Stevenson Padgett MD
[2018-08-19] MEDS: PHENOBARBITAL IV PRN ×2 (10:28→14:24)
[2018-08-19] MEDS: ATIVAN 20 MG in NS 190 ML IV SCH (12:09)
[2018-08-19] MEDS: ATIVAN IV PRN (12:37)
[2018-08-20] MEDS: ATIVAN IV PRN ×5 (01:29→23:09)
[2018-08-20] MEDS: NS 1,000 ML IV SCH ×2 (04:44→10:33)
[2018-08-20] MEDS: THIAMINE 100 MG in NS 50 ML IV SCH (07:40)
[2018-08-20] MEDS: LOVENOX SUBQ SCH (08:00)
[2018-08-20] MEDS: ATIVAN 20 MG in NS 190 ML IV SCH (08:38)
[2018-08-20 09:03] LABS: BASO# 0.02 X1000 (0.0-0.2); BASO% 0.3 % (0.0-0.8); EOS# 0.05 X1000 (0.0-0.7); EOS% 0.7 % (0.0-10.0); HEMATOCRIT 36.7 % (42.0-52.0); LYMPH# 1.46 X1000 (1.2-3.4); LYMPH% 20.7 % (20.5-51.1); MCH 32.5 PG (27-31); MCHC 32.7 g/dL (33-37); MCV 99.5 FL (81-99); MONO% 12.7 % (1.7-9.3); MPV 9.7 FL (7.4-10.4); NEUT# 4.63 X1000 (1.4-6.5); NEUT% 65.6 % (42.2-75.2); PLT 170 X1000 (130-400); RBC 3.69 XMIL (4.7-6.1); WBC 7.06 X1000 (4.8-10.8)
[2018-08-20 09:11] LABS: AGAP 18; ALB/GLOB RATIO 0.9; ALBUMIN 3.2 g/dL (3.5-5.0); ALKALINE PHOSPHATASE 53 U/L (32-122); BUN 5 mg/dL (8-22); CALCIUM 8.6 mg/dL (8.8-10.2); CHLORIDE 97 mmol/L (98-107); COSMO 266; CREATININE 0.7 mg/dL (0.7-1.2); ESTIMATED GFR > 60; GLUCOSE 70 mg/dL (70-104); GOT 34 U/L (10-34); GPT 18 U/L (10-44); SODIUM 135 mmol/L (136-145); TCO2 20 mmol/L (25-35); TOTAL BILIRUBIN 0.78 mg/dL (0.20-1.00); TOTAL PROTEIN 6.6 g/dL (6.3-8.3)
[2018-08-20] MEDS ORDERED: KLOR-CON PO ONE (11:42)
[2018-08-20] MEDS: D5 NS 1,000 ML IV SCH ×2 (12:06→22:19)
--- NOTE | 2018-08-20 12:15 | PROGRESS NOTE ---
DATE: 08/20/2018 SUBJECTIVE: This patient recently received a p.r.n. medication for agitation. He is sleepy but arousable. He is oriented x2. He is not oriented to time. He states that he is hungry and I will go ahead and give him some ice chips and probably I will start feeding this patient if he does okay. Apparently he is doing a little bit better compared with the previous days. OBJECTIVE: Vital Signs: Temperature 97.2, pulse 75, respiratory rate 23, blood pressure 142/99, oxygen saturation 99 on room air. HEENT: Head normocephalic. No trauma. PERRLA. Neck: Supple. No JVD. No masses. Central trachea. Chest: Clear to auscultation. No wheezing. No rales. Abdomen: Soft, nontender, nondistended. No hepatosplenomegaly. Extremities: No edema. No clubbing. No cyanosis. Neurological: This patient is sleepy but arousable. He is able to say his name and date of . He knows he is in the hospital. He is oriented to time. He is able to move all 4 extremities but he is not following commands completely because he is sleepy. LABORATORY: WBC 7, hemoglobin 12, hematocrit 36.7, platelets 170,000. Sodium 135, potassium 3, chloride 97, bicarbonate 20, BUN 5, creatinine 0.7, glucose 70, calcium 8.6, albumin 3.2. ASSESSMENT AND PLAN: 1. Toxic encephalopathy secondary to alcohol withdrawal. We will continue with the same management. I will add D5 NS to his medications because he has been having borderline low glucose. LFTs are better today. I will replace the potassium as well. 2. Agitation, likely secondary to alcohol withdrawal. Continue with p.r.n. medication. 3. Hypokalemia. I will replace the potassium. 4. Macrocytic anemia. I will ask for anemia status and I will monitor. 5. Dehydration. He seems to be more hydrated. We will continue with the same management. cc: Harish Funes MD
[2018-08-20] MEDS: PHENOBARBITAL IV PRN ×2 (13:09→22:08)
[2018-08-21 05:33] LABS: BASO# 0.02 X1000 (0.0-0.2); BASO% 0.3 % (0.0-0.8); EOS# 0.03 X1000 (0.0-0.7); EOS% 0.5 % (0.0-10.0); HEMATOCRIT 36.6 % (42.0-52.0); HEMOGLOBIN 12.4 g/dL (14.0-18.0); LYMPH# 1.19 X1000 (1.2-3.4); LYMPH% 18.5 % (20.5-51.1); MCH 32.6 PG (27-31); MCHC 33.9 g/dL (33-37); MCV 96.3 FL (81-99); MONO# 0.79 X1000 (0.11-0.59); MONO% 12.3 % (1.7-9.3); MPV 9.6 FL (7.4-10.4); NEUT% 68.4 % (42.2-75.2); PLT 208 X1000 (130-400); RDW 13.6 % (11.5-14.5); WBC 6.43 X1000 (4.8-10.8)
[2018-08-21] MEDS: PHENOBARBITAL IV PRN (06:42)
[2018-08-21 06:46] LABS: AGAP 13; BUN 4 mg/dL (8-22); CHLORIDE 99 mmol/L (98-107); COSMO 273; CREATININE 0.6 mg/dL (0.7-1.2); GLUCOSE 132 mg/dL (70-104); SODIUM 137 mmol/L (136-145); TCO2 25 mmol/L (25-35)
[2018-08-21 06:47] LABS: CALCIUM 8.4 mg/dL (8.8-10.2)
[2018-08-21 06:49] LABS: IRON SATURATION 18 %; TIBC 231 ug/dL; TOTAL IRON 42 ug/dL (53-167); UNBOUND IRON 189 ug/dL (112-346)
[2018-08-21 07:08] LABS: FERRITIN 240 ng/mL (30-400)
[2018-08-21] MEDS: D5 NS 1,000 ML IV SCH ×2 (07:30→18:09)
[2018-08-21] MEDS: THIAMINE 100 MG in NS 50 ML IV SCH (07:30)
[2018-08-21] MEDS: LOVENOX SUBQ SCH (08:15)
[2018-08-21] MEDS: KLOR-CON PO SCH ×2 (08:53→21:41)
[2018-08-21] MEDS ORDERED: FOLIC ACID PO SCH (09:00)
--- NOTE | 2018-08-21 09:26 | PROGRESS NOTE ---
DATE: 08/21/2018 SUBJECTIVE: It looks like this patient has been agitated. They have increased the drip of the Ativan from 0.5 to 1 and also I believe he received p.r.n. medications. He is oriented x2. He is not oriented to time. He is really sleepy, but he is following commands. This patient is tolerating fluids, but if he is completely awake and if he is not having problems swallowing fluids, he can get a soft diet, again, as long as this patient is completely awake. OBJECTIVE: Vital Signs: Temperature 98.3, pulse 78, respiratory rate 18, blood pressure 133/99, oxygen saturation 98 on room air. HEENT: Head normocephalic. No trauma. PERRLA. Neck: Supple. No JVD. No masses. Central trachea. Chest: Clear to auscultation. No wheezing. No rales. Abdomen: Soft, nontender, nondistended. No hepatosplenomegaly. Extremities: No edema. No clubbing. No cyanosis. Neurological: This patient is sleepy, but arousable. He is able to say his name, date of , and he knows he is in [facility]. He is not oriented to time. He is able to move all 4 extremities, but he is not following commands completely, because he is really sleepy. LABORATORY: WBC 6.4, hemoglobin 12.4, hematocrit 36.6, platelets 208. Sodium 137, potassium 3, chloride 99, bicarbonate 25, BUN 4, creatinine 0.6, glucose 132, calcium 8.4. Iron 42, folate 6.3, but ferritin is 240. ASSESSMENT AND PLAN: 1. Toxic encephalopathy, secondary to alcohol withdrawal. Continue with the same management. He is getting Ativan drip. Continue with IV fluids. He can eat as long as he is completely awake. I will replace his potassium today again. 2. Agitation, likely secondary to alcohol withdrawal. Continue with p.r.n. medication and treatment. 3. Alcohol withdrawal as per #1. 4. Hypokalemia. I will replace the potassium. 5. Macrocytic anemia, likely secondary to folate deficiency. I will start replacing it. Also it could be related to his alcohol abuse. 6. Alcohol abuse. This patient has been highly advised against alcohol use. I will continue with daily cessation education. 7. Dehydration, resolved. CRITICAL CARE TIME: 35 minutes. cc: Harish Funes MD
[2018-08-21] MEDS: FOLIC ACID 1 MG in NS 50 ML IV SCH (10:30)
[2018-08-21] MEDS: ATIVAN 20 MG in NS 190 ML IV SCH (14:30)
[2018-08-21] MEDS ORDERED: APRESOLINE IV PRN (15:26)
[2018-08-21] MEDS: NICODERM PATCH TD SCH (15:35)
[2018-08-21] MEDS: ATIVAN IV PRN (21:42)
[2018-08-22] MEDS: D5 NS 1,000 ML IV SCH ×2 (04:25→13:39)
[2018-08-22 05:51] LABS: BASO# 0.03 X1000 (0.0-0.2); BASO% 0.4 % (0.0-0.8); EOS# 0.04 X1000 (0.0-0.7); EOS% 0.5 % (0.0-10.0); HEMATOCRIT 35.1 % (42.0-52.0); HEMOGLOBIN 11.8 g/dL (14.0-18.0); LYMPH# 1.44 X1000 (1.2-3.4); LYMPH% 19.1 % (20.5-51.1); MCH 32.5 PG (27-31); MCHC 33.6 g/dL (33-37); MCV 96.7 FL (81-99); MONO# 1.29 X1000 (0.11-0.59); MONO% 17.1 % (1.7-9.3); MPV 10.1 FL (7.4-10.4); NEUT# 4.73 X1000 (1.4-6.5); NEUT% 62.9 % (42.2-75.2); PLT 258 X1000 (130-400); RBC 3.63 XMIL (4.7-6.1); RDW 13.8 % (11.5-14.5); WBC 7.53 X1000 (4.8-10.8)
[2018-08-22 06:24] LABS: AGAP 11; ALBUMIN 3.2 g/dL (3.5-5.0); ALKALINE PHOSPHATASE 51 U/L (32-122); BUN 5 mg/dL (8-22); CALCIUM 8.6 mg/dL (8.8-10.2); CHLORIDE 102 mmol/L (98-107); COSMO 272; CREATININE 0.5 mg/dL (0.7-1.2); ESTIMATED GFR > 60; GLUCOSE 122 mg/dL (70-104); GOT 20 U/L (10-34); GPT 13 U/L (10-44); POTASSIUM 3.7 mmol/L (3.5-5.1); SODIUM 137 mmol/L (136-145); TCO2 24 mmol/L (25-35); TOTAL BILIRUBIN 0.31 mg/dL (0.20-1.00); TOTAL PROTEIN 6.5 g/dL (6.3-8.3)
[2018-08-22] MEDS: FOLIC ACID 1 MG in NS 50 ML IV SCH (07:55)
[2018-08-22] MEDS: THIAMINE 100 MG in NS 50 ML IV SCH (07:55)
[2018-08-22] MEDS ORDERED: MAGNESIUM SULFATE 2 GM/S.W.I. 2 GM/50 ML IVPB IV ONE (08:00)
[2018-08-22] MEDS: NICODERM PATCH TD SCH (08:03)
[2018-08-22] MEDS: LOVENOX SUBQ SCH (08:03)
[2018-08-22] MEDS: LIBRIUM PO SCH ×2 (11:08→22:43)
[2018-08-22] MEDS: TYLENOL PO PRN (11:08)
--- NOTE | 2018-08-22 11:34 | PROGRESS NOTE ---
DATE: 08/22/2018 SUBJECTIVE: This patient seems to be doing better. He is still having some hallucinations and he has been confused on and off. The Ativan drip has been completed and I will put this patient on Librium every 6 hours, which I will decrease slowly. He is not on restraints. I will send him to the medical floor. He is eating without any kind of problems. He is having bowel movements. No shortness of breath or respiratory distress. Vital signs are stable. OBJECTIVE: Vital Signs: Temperature 99.2 degrees, pulse 105 respiratory rate 22, blood pressure 131/88, oxygen saturation 98% on room air. HEENT: Head normocephalic. No trauma. PERRLA. Neck: Supple. No JVD. No masses. Central trachea. Chest: Clear to auscultation. No wheezing. No rales. Abdomen: Soft, nontender, nondistended. No hepatosplenomegaly. Extremities: No edema. No clubbing. No cyanosis. Neurological: The patient is sleepy, but arousable. Oriented x1. He is also able to say his date of . He is not oriented to time or place. LABORATORY: WBC 7.5, hemoglobin 11.8, hematocrit 35.1, platelets 258,000. Sodium 137, potassium 3.7, chloride 102, bicarbonate 24, BUN 5, creatinine 0.5, glucose 122, calcium 8.4, magnesium 1.4. Albumin 3.2. ASSESSMENT AND PLAN: 1. Toxic encephalopathy secondary to alcohol withdrawal. Continue with the same management. He received already Ativan drip, which has been stopped. Will continue with fluids. He is tolerating p.o. I will start this patient on Librium, which I will decrease slowly. 2. Alcohol withdrawal. Continue with p.r.n. medication. He received already Librium. Continue with p.r.n. Ativan and Librium scheduled. 3. Agitation, likely secondary to numbers 1 and 2, much better. He is having some hallucinations on and off, but better compared with admission. 4. Hypokalemia, resolved. 5. Hypomagnesemia. I will replace the magnesium. 6. Macrocytic anemia, likely secondary to folate deficiency, also alcohol abuse. I will start replacing the folic acid. 7. Alcohol abuse. This patient has been highly advised against alcohol use. I will continue with daily cessation education. 8. Dehydration, resolved. CRITICAL CARE TIME: Thirty minutes. cc: Harish Funes MD
[2018-08-22] MEDS: PHENOBARBITAL IV PRN (12:44)
[2018-08-23] MEDS: D5 NS 1,000 ML IV SCH ×3 (00:23→20:48)
[2018-08-23] MEDS: LIBRIUM PO SCH ×4 (04:36→20:48)
[2018-08-23 06:48] LABS: BASO# 0.03 X1000 (0.0-0.2); BASO% 0.5 % (0.0-0.8); EOS# 0.13 X1000 (0.0-0.7); HEMATOCRIT 32.7 % (42.0-52.0); HEMOGLOBIN 10.7 g/dL (14.0-18.0); LYMPH% 23.2 % (20.5-51.1); MCH 32.1 PG (27-31); MCHC 32.7 g/dL (33-37); MCV 98.2 FL (81-99); MONO% 13.9 % (1.7-9.3); MPV 9.6 FL (7.4-10.4); NEUT% 60.4 % (42.2-75.2); PLT 278 X1000 (130-400); RBC 3.33 XMIL (4.7-6.1); WBC 6.46 X1000 (4.8-10.8)
[2018-08-23 07:32] LABS: AGAP 12; BUN 8 mg/dL (8-22); CALCIUM 8.2 mg/dL (8.8-10.2); CHLORIDE 101 mmol/L (98-107); COSMO 273; CREATININE 0.5 mg/dL (0.7-1.2); ESTIMATED GFR > 60; GLUCOSE 119 mg/dL (70-104); POTASSIUM 3.3 mmol/L (3.5-5.1); SODIUM 137 mmol/L (136-145); TCO2 24 mmol/L (25-35)
[2018-08-23] MEDS: NICODERM PATCH TD SCH (09:25)
[2018-08-23] MEDS: FOLIC ACID 1 MG in NS 50 ML IV SCH (09:25)
[2018-08-23] MEDS: LOVENOX SUBQ SCH (09:25)
[2018-08-23] MEDS: THIAMINE 100 MG in NS 50 ML IV SCH (09:25)
[2018-08-23] MEDS ORDERED: KLOR-CON PO ONE (13:44)
--- NOTE | 2018-08-23 19:25 | PROGRESS NOTE ---
DATE: 08/23/2018 SUBJECTIVE: This patient is definitely more alert. He is oriented x3. I have requested to remove the Taveras catheter and physical therapy. I have decreased the dose of Librium. We will continue to monitor. OBJECTIVE: Vital Signs: Temperature 99.2 degrees, pulse 94, respiratory rate 18, blood pressure 125/87, oxygen saturation 97% on room air. HEENT: Head normocephalic. No trauma. PERRLA. Neck: Supple. No JVD. No masses. Central trachea. Chest: Clear to auscultation. No wheezing. No rales. Abdomen: Soft, nontender, nondistended. No hepatosplenomegaly. Extremities: No edema. No clubbing. No cyanosis. Neurological: The patient is awake. He is oriented x3. His answers are slow. He does have generalized weakness. LABORATORY DATA: WBC 6.4, hemoglobin 10.7, hematocrit 32.7, platelets 278,000. Sodium 137, potassium 3.3, chloride 101, bicarbonate 24, BUN 8, creatinine 0.5, glucose 119, calcium 8.2, magnesium 1.7. ASSESSMENT AND PLAN: 1. Toxic encephalopathy secondary to alcohol withdrawal. I have decreased the dose of Librium today. He seems to be more awake and oriented. We will continue with the rest of the treatment. 2. Alcohol withdrawal, as above. 3. Agitation, likely secondary to toxic encephalopathy and alcohol withdrawal, much better. He is not having hallucinations at this moment. 4. Hypokalemia. I will replace the potassium. 5. Hypomagnesemia, resolved. 6. Macrocytic anemia, likely secondary to folate deficiency, also alcohol abuse. I already started replacing the folic acid. 7. Folate deficiency. Continue to replace. 8. Alcohol abuse. This patient has been highly advised against alcohol use. I will continue with daily cessation education. 9. Dehydration, resolved. cc: Harish Funes MD
[2018-08-24] MEDS: ATIVAN IV PRN ×3 (00:11→22:26)
[2018-08-24] MEDS: LIBRIUM PO SCH ×3 (02:16→21:08)
[2018-08-24 07:23] LABS: AGAP 10; BUN 5 mg/dL (8-22); CALCIUM 8.5 mg/dL (8.8-10.2); CHLORIDE 104 mmol/L (98-107); COSMO 274; CREATININE 0.5 mg/dL (0.7-1.2); ESTIMATED GFR > 60; GLUCOSE 115 mg/dL (70-104); POTASSIUM 3.8 mmol/L (3.5-5.1); SODIUM 138 mmol/L (136-145); TCO2 24 mmol/L (25-35)
[2018-08-24] MEDS: LOVENOX SUBQ SCH (08:23)
[2018-08-24] MEDS: THIAMINE 100 MG in NS 50 ML IV SCH (08:23)
[2018-08-24] MEDS: NICODERM PATCH TD SCH (08:23)
[2018-08-24] MEDS: FOLIC ACID 1 MG in NS 50 ML IV SCH (08:23)
[2018-08-24] MEDS: TYLENOL PO PRN (08:24)
[2018-08-24] MEDS ORDERED: MOTRIN PO PRN (15:36)
[2018-08-24] MEDS ORDERED: MOTRIN PO ONE (15:36)
--- NOTE | 2018-08-24 16:23 | PROGRESS NOTE ---
DATE: 08/24/2018 SUBJECTIVE: This patient is sleepy but arousable oriented x3, I have decreased the Librium today again from 10 mg p.o. q.6 hours to 10 mg p.o. q.8 hours, I will decrease that slowly. OBJECTIVE: Vital Signs: Temperature 99.1 degrees, pulse 94, respiratory rate 20, blood pressure 114/75, oxygen saturation 96 on room air. HEENT: Head normocephalic. No trauma. PERRLA. Neck: Supple. No JVD. No masses. Central trachea. Chest: Clear to auscultation. No wheezing, no rales. Abdomen: Soft, nontender, nondistended. No hepatosplenomegaly. Extremities: No edema, no clubbing, no cyanosis. Neurological: The patient is alert, awake and oriented x3. His answers are slow and he does have severe generalized weakness. He has a problem opening his left hand due to previous lesion on that hand/arm. LABORATORY: Sodium 138, potassium 3.8, chloride 104, bicarbonate 24, BUN 5, creatinine 0.5, glucose 115, calcium 8.5. ASSESSMENT AND PLAN: 1. Toxic encephalopathy secondary to alcohol withdrawal, he is doing better. I have decreased the dose of Librium again today, he seems to be more oriented. Will continue with the same management. 2. Alcohol withdrawal resolved. Continue with the same management. 3. Agitation likely secondary to toxic encephalopathy and alcohol withdrawal, much better. He is not having hallucinations at this moment. 4. Hypokalemia resolved. 5. Hypomagnesemia resolved. 6. Macrocytic anemia, likely secondary to folate deficiency, also alcohol abuse. I already started replacing the folic acid. 7. Folate deficiency. Continue to replace. 8. Alcohol abuse. This patient has been highly advised against alcohol use. I will continue with daily cessation education. 9. Possible depression, as per the patient he tried to commit suicide some time ago, at this moment he feels a little bit depressed but he does not have a plan and he does not want to hurt himself at this moment. I do believe that once this patient is stable we should call [facility] for evaluation. Also I need to talk to a director social service next Sunday because of his severe weakness, he is living by himself but he cannot take care of himself. cc: Harish Funes MD
[2018-08-24] MEDS ORDERED: MIRALAX PO ONE (20:21)
[2018-08-24] MEDS: COLACE PO SCH (21:08)
[2018-08-25] MEDS: ATIVAN IV PRN ×3 (04:38→22:30)
[2018-08-25] MEDS: LIBRIUM PO SCH ×3 (04:38→22:30)
[2018-08-25] MEDS ORDERED: MIRALAX PO SCH (09:00)
[2018-08-25] MEDS: CENTRUM TABLET PO SCH (11:04)
[2018-08-25] MEDS: COLACE PO SCH ×2 (11:05→22:30)
[2018-08-25] MEDS: FOLIC ACID PO SCH (11:06)
[2018-08-25] MEDS: LOVENOX SUBQ SCH (11:06)
[2018-08-25] MEDS: NICODERM PATCH TD SCH (11:06)
[2018-08-25] MEDS: VITAMIN B-1 PO SCH (11:06)
--- NOTE | 2018-08-25 17:59 | PROGRESS NOTE ---
DATE: 08/25/2018 SUBJECTIVE: This patient is sleepy, but arousable, and oriented x3. I have decreased the dose of Librium today again to 10 mg every 12 hours, and tomorrow hopefully I will stop it completely and put p.r.n. OBJECTIVE: Vital Signs: Temperature 98.5 degrees, pulse 91, respiratory rate 16, blood pressure 135/85, and oxygen saturation 97% on room air. HEENT: Head normocephalic. No trauma. PERRLA. Neck: Supple. No JVD. No masses. Central trachea. Chest: Clear to auscultation. No wheezing. No rales. Abdomen: Soft, nontender, and nondistended. No hepatosplenomegaly. Extremities: No edema. No clubbing. No cyanosis. Neurological: The patient is alert, awake and oriented x3. The patient is sleepy, but arousable and oriented x3. His answers are slow. He does have generalized weakness. He seems to be a little bit depressed today. He has a problem opening his left hand due to previous lesion/surgery. LABORATORY: No lab work done today. Stable lab work from yesterday. ASSESSMENT AND PLAN: 1. Toxic encephalopathy secondary to alcohol withdrawal resolved. I have decreased the dose of Librium again today. Hopefully tomorrow, we will stop it completely. 2. Alcohol withdrawal, resolved. 3. Agitation, likely secondary to toxic encephalopathy and alcohol withdrawal. 4. Hypokalemia resolved. 5. Hypomagnesemia resolved. 6. Macrocytic anemia, likely secondary to folate deficiency. Also alcohol abuse. I already started folic acid on this patient. 7. Folate deficiency. As above. 8. Alcohol abuse. This patient has been highly advised against alcohol use. I will continue with daily cessation education. 9. Likely depression, probably I need to contact [facility] for evaluation. This patient apparently tried to commit suicide some time ago. At this moment, he feels depressed but he does not want to hurt himself or others. cc: Harish Funes MD
[2018-08-26] MEDS: ATIVAN IV PRN ×2 (08:07→10:48)
[2018-08-26] MEDS: FOLIC ACID PO SCH (10:47)
[2018-08-26] MEDS: LIBRIUM PO SCH (10:47)
[2018-08-26] MEDS: VITAMIN B-1 PO SCH (10:47)
[2018-08-26] MEDS: CENTRUM TABLET PO SCH (10:47)
[2018-08-26] MEDS: COLACE PO SCH (10:47)
[2018-08-26] MEDS: TYLENOL PO PRN (10:48)
[2018-08-26] MEDS: NICODERM PATCH TD SCH (10:48)
[2018-08-26] MEDS: LOVENOX SUBQ SCH (10:49)
--- NOTE | 2018-08-26 18:23 | PROGRESS NOTE ---
DATE: 08/26/2018 SUBJECTIVE: This patient is awake and oriented x3, I have stopped completely his Librium, for me this patient looks depressed and I requested an evaluation by [facility] since this patient had a previous history of suicidal ideation and I believe he tried to commit suicide 1 time. OBJECTIVE: Vital Signs: Temperature 97.4 degrees, pulse 91, respiratory rate 24, blood pressure 114/77, oxygen saturation 95 on room air. HEENT: Head normocephalic. No trauma. PERRLA. Neck: Supple. No JVD. No masses. Central trachea. Chest: Clear to auscultation. No wheezing, no rales. Abdomen: Soft, nontender, nondistended. No hepatosplenomegaly. Extremities: No edema, no clubbing, no cyanosis. Neurological: The patient is alert, awake and oriented x3. His answers are slow. He does have generalized weakness and he looks deep depressed, he has a problem opening his left hand due to previous lesion/surgery. LABORATORY: No lab work done today. ASSESSMENT AND PLAN: 1. Toxic encephalopathy secondary to alcohol withdrawal, resolved. The Librium has been completely stopped, he seems to be stable. 2. Alcohol withdrawal resolved. 3. Agitation likely secondary to toxic encephalopathy and alcohol withdrawal. 4. Hypokalemia resolved. 5. Hypomagnesemia resolved. 6. Macrocytic anemia likely secondary to folate deficiency, alcohol abuse, I already started folic acid on this patient. 7. Folate deficiency as above. 8. Alcohol abuse. This patient has been highly advised against alcohol use. I will continue with daily cessation education. As per the patient, he will not do it again. 9. Depression, he seems to be depressed, I called [facility] for an evaluation, pending recommendations at this moment. He has a past medical history of suicidal ideation and I think he tried to commit suicide 1 time. cc: Harish Funes MD
--- NOTE | 2018-08-26 18:33 | Diag Imaging Result Doc PS360 ---
EXAM: CT HEAD W/WO CONTRAST 08/26/2018 HISTORY: ams TECHNIQUE: This exam was performed using automated exposure control, adjustment of mA or kV according to patient size, and/or use of iterative reconstruction technique. COMMENT: There is mild cerebral atrophy. There are patchy subcortical and periventricular white matter lucencies. No evidence of bleed mass effect or abnormal extra-axial fluid collection is present. Compared to the previous examination of 03/01/2017 there has been no significant change. The visualized paranasal sinuses are clear. The calvarium is intact. IMPRESSION: No evidence of acute intracranial disease. Chronic ischemic microvascular changes. Electronically signed by Cyrus Young 08/26/2018 6:31 PM
[2018-08-26] MEDS ORDERED: ATIVAN IM ONE (20:34)
[2018-08-26] MEDS ORDERED: AMBIEN PO PRN (20:34)
[2018-08-26 20:40] VITALS: BP 139/95
--- NOTE | 2018-08-27 05:44 | DISCHARGE SUMMARY ---
ADMISSION DATE: 08/18/2018 DISCHARGE DATE: 08/26/2018 DISCHARGE DIAGNOSES: 1. Toxic encephalopathy secondary to alcohol withdrawal. 2. Alcohol withdrawal, resolved. 3. Agitation likely secondary to 1 and 2. 4. Hypokalemia, resolved. 5. Hypomagnesemia, resolved. 6. Macrocytic anemia due to folate deficiency. 7. Folic acid deficiency. 8. Alcohol abuse. 9. Severe depression. HOSPITAL COURSE: A 57-year-old male admitted on 08/18/2017. He was in the custody of police, and was brought to the emergency department because the patient was having hallucinations and was altered. Apparently, he was arrested about 4 days ago for public alcohol intoxication. The patient was evaluated in the emergency department, and we suspected he was in a early delirium tremens. Subsequently, he was admitted for further treatment. The patient was not cooperative and not too much information was obtained from him. In the emergency department, he continues to be very agitated, and we started this patient on Ativan drip and also we used p.r.n. Geodon and phenobarbital. Will follow the Ativan drip protocol and for a few days, this patient was really sleepy, but then he stopped being agitated. He was more alert, and we started feeding this patient as well. Once we stopped the Ativan drip, we put this patient on p.r.n. Ativan and Librium, which we decreased the dose on a daily basis slowly to the point that he does not need it any more. He received IV fluids, banana bag, as well. Once he was more alert and oriented, he presented with signs of weakness. Physical therapy on board and working on this patient on a daily basis. While I was evaluating this patient, he showed some signs of depression and occasionally, he was crying. He has a past medical history of a suicide attempt. At this moment, I do not think he has a plan to hurt himself or others, but he told me, that he does not want to leave anymore. I contacted [facility] for a psychiatry evaluation. CT scan of the head is negative, and they have accepted the patient. So the patient has been transferred to [facility]. PHYSICAL EXAMINATION: Vital Signs: Temperature 98 degrees, pulse 88, respiratory rate 12, blood pressure 139/95, oxygen saturation 99 on room air. HEENT: Head normocephalic. No trauma. PERRLA. Neck: Supple. No JVD. No masses. Central trachea. Chest: Clear to auscultation. No wheezing. No rales. Abdomen: Soft, nontender, and nondistended. No hepatosplenomegaly. Extremities: No edema. No clubbing. No cyanosis. Neurological: The patient is alert. He is oriented x3. He has some generalized weakness, but he is getting better. He looks depressed. He has a problem opening his left hand due to previous surgery. LABORATORY: WBC 138, potassium 3.8, chloride 104, bicarbonate 24, BUN 5, creatinine 0.5, glucose 115, calcium 8.5. This laboratory is from 08/24/2018. No more lab work required since he was stable. DISCHARGE MEDICATIONS: Thiamine 100 mg p.o. q.a.m., MiraLAX 17 g p.o. daily, nicotine patch 14 mg TD daily, Centrum tablet, 1 tablet p.o. daily, folic acid 1 mg p.o. daily, docusate 100 mg p.o. b.i.d., and Tylenol 650 mg p.o. q.4 hours as needed. DISPOSITION: This patient has been accepted as an inpatient at [facility] after psychiatry evaluation. At the moment of discharge, this patient was in a stable medical condition, tolerating p.o. He is weak, but he was ambulating, completely alert and oriented x3. TIME DISCHARGING THIS PATIENT: 35 minutes. cc: Harish Funes MD
== END 2018-08-26 22:02 | DRG 897 ==
LOC: ED 01:32 → ICU 06:42 → SUATTDRO 06:42 → 4N 08-22 13:25
PROVIDERS: ATTEND Internal Medicine
CPT/HCPCS: 70470; 80048; 80053; 80101; 80301; 80307; 80320; 80324; 80345; 80346; 80353; 80358; 80361; 80365; 81001; 82055; 82272; 82607; 82728; 82746; 82948; 83540; 83550; 83735; 83992; 85025; 96365; 96375; 96376; 97110; 97116; 97163; 97165; 97530; 97535; 99285; A9270; G0431; G0434; G0479; G0480; G6040; J0360; J1650; J2060; J2560; J3411; J3475; J3480; J3486; J7030; J7042; J7050; Q9967; XXXXX